=== PATIENT | male | born 1945 | race Native Hawaiian/Other Pacific Islander ===

== ENCOUNTER 2016-07-31 14:08 | Outpatient (CLI) | payer BC, OTHER ==
[~2016-07-31 14:08] MED LIST: LOSARTAN PO; METF10002 PO
[2016-07-31 15:07] LABS: HEMATOCRIT 42.4 % (40.0-50.0); HEMOGLOBIN 13.7 g/dL (14.0-18.0); MEAN CORPUSCULAR HGB CONC 32 g/dL (32.0-37.0); MEAN CORPUSCULAR VOLUME 89.7 fL (82.0-92.0); PLATELET COUNT (AUTO) 164 K/uL (150-450); RED BLOOD CELL COUNT(AUTO) 4.72 MIL/uL (4.70-6.10); RED CELL DISTRIBUTION WIDTH 13.3 % (11.5-14.5); WHITE BLOOD COUNT (AUTO) 6.7 K/uL (4.0-11.2)
[2016-07-31 15:13] LABS: FOLIC ACID 19.2 NG/ML (8.6-58.9)
[2016-07-31 15:48] LABS: LYMPHOCYTES % (MANUAL) 18 % (20-40); MONOCYTES % (MANUAL) 5 % (2-10); NEUTROPHILS % (MANUAL) 77 % (42-75)
[2016-08-01 15:08] LABS: A/G RATIO 1.4 (0.7-1.7); ALBUMIN 4.2 g/dL (2.9-4.4); ALPHA-1-GLOBULIN 0.2 g/dL (0.0-0.4); ALPHA-2-GLOBULIN 0.5 g/dL (0.4-1.0); BETA GLOBULIN 0.9 g/dL (0.7-1.3); GAMMA GLOBULIN 1.4 g/dL (0.4-1.8); M-SPIKE Not Observed g/dL (Not Observed)
== END 2016-07-31 23:59 | disposition home or self-care (01) ==
LOC: LAB 14:08
PROVIDERS: ATTEND Internal Medicine
DX: D64.9 Anemia, unspecified (principal); R80.9 Proteinuria, unspecified
CPT/HCPCS: 36415; 71020; 82746; 83550; 84155; 84165; 85025

== ENCOUNTER 2019-11-05 16:45 | Emergency (ER) | payer OTHER ==
[~2019-11-05] VITALS: Ht 175.3 cm; Wt 83.9 kg
[~2019-11-05 16:45] MED LIST changes: +METF-442 PO; -METF10002 PO
--- NOTE | 2019-11-05 17:13 | NUR ---
PT WAS EVALUATED BY DR MARR. PT WAS D/C'd TO HOME. D/C INSTRUCTIONS GIVEN TO THE PT.
[2019-11-05 17:16] VITALS: BP 149/88
== END 2019-11-05 17:16 | disposition home or self-care (01) ==
LOC: ER 16:50
DX: Z03.818 Encounter for observation for suspected exposure to other biological agents ruled out (principal); I10 Essential (primary) hypertension; E11.9 Type 2 diabetes mellitus without complications; Z79.84 Long term (current) use of oral hypoglycemic drugs
CPT/HCPCS: 99283; U0003; A4663